=== PATIENT | female | born 1995 | race Caucasian/White ===

== ENCOUNTER 2023-02-08 22:36 | Inpatient (IN) | payer BC ==
[2023-02-08] MEDS ORDERED: Oxytocin 10 Units/1 ML SDV ONE (23:08)
[2023-02-08] MEDS ORDERED: Oxytocin 10 Units/1 ML SDV IM ONE (23:10)
[2023-02-08] MEDS ORDERED: Lidocaine 1% 20 ML MDV ONE (23:19)
[2023-02-08] MEDS ORDERED: Acetaminophen 500 MG Tab PO PRN ×2 (23:38)
[2023-02-08] MEDS ORDERED: Lanolin 100% Cream 7 GM Tube TOP PRN (23:38)
[2023-02-08] MEDS ORDERED: Docusate Sodium 100 MG Cap PO PRN (23:38)
[2023-02-08] MEDS ORDERED: oxyCODONE 5 MG Tab PO PRN (23:38)
[2023-02-08] MEDS ORDERED: Ibuprofen 400 MG Tab PO PRN (23:38)
[2023-02-08] MEDS ORDERED: Bisacodyl 10 MG Supp RECTAL PRN (23:38)
[2023-02-08] MEDS ORDERED: Ibuprofen 800 MG Tab PO PRN (23:38)
[2023-02-09] MEDS ORDERED: Lactated Ringers 1,000 ML IV SCH (00:30)
[2023-02-09] MEDS ORDERED: Lidocaine 1% 50 ML MDV INJECT PRN (00:30)
[2023-02-09] MEDS ORDERED: Oxytocin/0.9 % Sodium Chloride 30 UNIT/500 ML BAG IV SCH (00:30)
[2023-02-09] MEDS ORDERED: Tranexamic Acid 1,000 MG in Sodium Chloride 0.9% 100 ML IV PRN (00:30)
[2023-02-09] MEDS ORDERED: Ondansetron 4 MG/2 ML SDV IVPUSH PRN (00:30)
[2023-02-09] MEDS ORDERED: Water For Irrigation,Sterile 1,000 ML Container IRR PRN (00:30)
[2023-02-09] MEDS ORDERED: Sodium Chloride 0.9% 20 ML SDV IV PRN (00:30)
[2023-02-09] MEDS ORDERED: Oxytocin/0.9 % Sodium Chloride 30 UNIT/500 ML BAG ONE (00:51)
[2023-02-09 01:08] LABS: HEMATOCRIT 30.2 % (36.0-46.0); HEMOGLOBIN 10.2 g/dL (12.0-16.0); MEAN CORPUSCULAR HEMOGLOBIN 30.4 pg (27.0-32.0); MEAN CORPUSCULAR HGB CONC 33.8 g/dL (31.0-37.0); MEAN CORPUSCULAR VOLUME 89.9 fL (80.0-98.0); MEAN PLATELET VOLUME 10.9 fL (7.40-12.00); RED BLOOD CELL COUNT 3.36 M/uL (4.30-5.90); WHITE BLOOD CELL COUNT,WBC 23.03 K/uL (4.0-11.0)
[2023-02-09] MEDS: Witch Hazel Medicated Pads 40/Jar TOP PRN ×2 (02:26→23:44)
[2023-02-09] MEDS: Benzocaine/Menthol 20%-0.5% Spray 78 GM Cannister TOP PRN ×2 (02:26→23:43)
[2023-02-09 05:57] LABS: HEMATOCRIT 30.8 % (36.0-46.0); HEMOGLOBIN 10.1 g/dL (12.0-16.0)
== END 2023-02-09 23:59 | disposition home or self-care (01) | DRG 560 ==
LOC: MW.OB 22:36 → MW.OBCHECK 22:36 → MW.OB 22:41 → OBSVTOIN 23:18 → MW.OB 02-09 04:09
PROVIDERS: ADMIT Obstetrics & Gynecology; ATTEND Obstetrics & Gynecology
PROC: 10E0XZZ Delivery of Products of Conception, External Approach (ICD-10-PCS; principal; 2023-02-08)
DX: O42.02 Full-term premature rupture of membranes, onset of labor within 24 hours of rupture (principal); Z37.0 Single live birth; O70.0 First degree perineal laceration during delivery
CPT/HCPCS: 36415; 85014; 85018; 85027; 86592; 86850; 86900; 86901; A9270-GY; J2590; J3490; J7120

== ENCOUNTER 2025-03-02 12:24 | Inpatient (IN) | payer BC ==
[2025-03-02] MEDS ORDERED: Lidocaine 1% 50 ML MDV INJECT PRN (12:44)
[2025-03-02] MEDS ORDERED: Misoprostol 200 MCG Tab PO PRN (12:44)
[2025-03-02] MEDS ORDERED: Sodium Chloride 0.9% 20 ML SDV IV PRN (12:44)
[2025-03-02] MEDS ORDERED: Sodium Chloride 0.9% 2.5 ML Syringe FLUSH PRN ×2 (12:44→16:34)
[2025-03-02] MEDS ORDERED: Methylergonovine 0.2 MG/1 ML Amp IM PRN (12:44)
[2025-03-02] MEDS ORDERED: Butorphanol 1 MG/ML SDV IVPUSH PRN (12:44)
[2025-03-02] MEDS ORDERED: Ondansetron 4 MG/2 ML SDV IVPUSH PRN ×2 (12:44→16:34)
[2025-03-02] MEDS ORDERED: Misoprostol 200 MCG Tab RECTAL PRN ×2 (12:44→16:34)
[2025-03-02] MEDS ORDERED: Sodium Chloride 0.9% 10 ML Syringe FLUSH PRN ×2 (12:44→16:34)
[2025-03-02] MEDS ORDERED: Water For Irrigation,Sterile 1,000 ML Container IRR PRN (12:44)
[2025-03-02] MEDS ORDERED: Carboprost Tromethamine 250 MCG/1 mL Vial IM PRN ×2 (12:44→16:34)
[2025-03-02] MEDS: Lactated Ringers 1,000 ML IV SCH (13:00)
[2025-03-02 13:36] LABS: HEMATOCRIT 37.3 % (37.0-47.0); HEMOGLOBIN 12.7 g/dL (12.0-16.0); MEAN CORPUSCULAR HEMOGLOBIN 30.4 pg (28.0-32.0); MEAN CORPUSCULAR VOLUME 89.2 fL (83.0-99.0); MEAN PLATELET VOLUME 11.6 fL (9.4-12.3); PLATELET COUNT,PLT 213 K/uL (150-400); RED BLOOD CELL COUNT 4.18 M/uL (4.10-5.30); WHITE BLOOD CELL COUNT,WBC 13.78 K/uL (3.9-11.3)
[2025-03-02] MEDS: Oxytocin/0.9 % Sodium Chloride 30 UNIT/500 ML BAG IV SCH (14:05)
[2025-03-02] MEDS ORDERED: Witch Hazel Medicated Pads 40/Jar TOP ONE (15:56)
[2025-03-02] MEDS ORDERED: Benzocaine/Menthol 20%-0.5% Spray 78 GM Cannister ONE (15:56)
[2025-03-02] MEDS: Witch Hazel Medicated Pads 40/Jar TOP PRN (16:00)
[2025-03-02] MEDS: Benzocaine/Menthol 20%-0.5% Spray 78 GM Cannister TOP PRN (16:00)
[2025-03-02] MEDS ORDERED: Methylergonovine 0.2 MG/1 ML Amp IM ONE (16:34)
[2025-03-02] MEDS ORDERED: Measles, Mumps & Rubella Vaccine 0.5 ML SDV SUBCUT ONE (16:34)
[2025-03-02] MEDS ORDERED: Lanolin 100% Cream 7 GM Tube TOP PRN ×2 (16:34→18:56)
[2025-03-02] MEDS ORDERED: Ketorolac 30 MG/ML SDV IVPUSH SCH (16:45)
[2025-03-02] MEDS ORDERED: Oxytocin/0.9 % Sodium Chloride 30 UNIT/500 ML BAG IV SCH (16:45)
[2025-03-02] MEDS ORDERED: Acetaminophen 500 MG Tab PO PRN (18:56)
[2025-03-02] MEDS ORDERED: Ibuprofen 800 MG Tab PO PRN (18:56)
[2025-03-02] MEDS ORDERED: Benzocaine/Menthol 20%-0.5% Spray 78 GM Cannister TOP PRN (18:56)
[2025-03-02] MEDS ORDERED: Docusate Sodium 100 MG Cap PO PRN (18:56)
[2025-03-02] MEDS ORDERED: Witch Hazel Medicated Pads 40/Jar TOP PRN (18:56)
[2025-03-02] MEDS ORDERED: Docusate Sodium 100 MG Cap PO SCH (21:00)
[2025-03-03 05:55] LABS: HEMATOCRIT 36.8 % (37.0-47.0); HEMOGLOBIN 12.1 g/dL (12.0-16.0)
[2025-03-03] MEDS ORDERED: Ibuprofen 800 MG Tab PO PRN (16:34)
[2025-03-03] MEDS ORDERED: Acetaminophen 500 MG Tab PO PRN (16:34)
== END 2025-03-03 17:45 | disposition home or self-care (01) | DRG 560 ==
LOC: MW.OBCHECK 12:24 → MW.OB 12:29 → MW.OBCHECK 14:35 → MW.OB 14:39 → OBSVTOIN 14:39 → MW.OB 17:29
PROVIDERS: ADMIT Obstetrics & Gynecology Obstetrics; ATTEND Obstetrics & Gynecology Obstetrics
PROC: 10E0XZZ Delivery of Products of Conception, External Approach (ICD-10-PCS; principal; 2025-03-02)
PROC: 3E033VJ Introduction of Other Hormone into Peripheral Vein, Percutaneous Approach (ICD-10-PCS; 2025-03-02)
DX: O26.893 Other specified pregnancy related conditions, third trimester (principal); Z37.0 Single live birth; O70.0 First degree perineal laceration during delivery; Z3A.37 37 weeks gestation of pregnancy; Z67.41 Type O blood, Rh negative; Z28.39 Other underimmunization status
CPT/HCPCS: 36415; 59025; 59409; 85014; 85018; 85027; 86592; 86850; 86900; 86901; A9270-GY; J2590; J7120